=== PATIENT | male | born 1990 | race Caucasian/White ===

== ENCOUNTER 2020-09-28 17:22 | Emergency (ER) | payer OTHER, SELFPAY ==
--- NOTE | 2020-09-28 17:30 | ED.EAR ---
HPI - Ear Problem General Chief complaint: Ear Stated complaint: ear pain Source: patient Mode of arrival: ambulatory Limitations: no limitations History of Present Illness HPI Narrative: Zana Kelley is a 29yo male with no PMH who comes to express care with left ear discomfort, states he tried to use Debrox, came here with Q tip in ear canal. Says it has been worse the last day or so- unable to remove and hearing is muffled. Related Data Allergies Allergy/AdvReac Type Severity Reaction Status Date / Time amoxicillin Allergy Severe Hives Verified 09/28/20 17:31 nickel Allergy Unknown RASH Verified 09/28/20 17:31 AMOXICILLIN TRIHYDRATE Allergy Unknown HIVES Uncoded 09/28/20 17:31 POTASSIUM CLAVULANATE Allergy Unknown HIVES Uncoded 09/28/20 17:31 Review of Systems Review of Systems: Narrative: CONSTITUTIONAL: Denies fever, chills, sweats. EYES: Denies visual changes, redness, discharge. ENT: Denies rhinorrhea, congestion, sore throat, otalgia. Decreased hearing in left ear due to wax CARDIOVASCULAR: Denies chest pain, palpitations, edema. RESPIRATORY: Denies dyspnea, wheezing, cough GASTROINTESTINAL: Denies abdominal pain, nausea, vomiting, diarrhea. GENITOURINARY: Denies dysuria, hematuria, abnormal discharge SKIN: Denies rash or itching. NEUROLOGIC: Denies numbness, or focal weakness. PSYCHIATRIC: Denies anxiety or depression. [facility] Past Medical History Medical History No acute medical problems Family History Family History Father Family history of pancreatic cancer Social History Social History Smoking status: Never smoker Alcohol intake: current Comments At time of signature, I agree with nursing past medical, surgical, social and family history. There is no relevant family history pertinent to the presenting complaint. Exam Narrative: Exam Narrative: GENERAL: This is a well-nourished, well-developed patient, in mild distress. HEAD: normocephalic, atraumatic. EYES Sclera clear/white. Vision is grossly intact. EARS: External ears normal, auditory canalr R small amount wax, L larger amount of wax, can't visualize L TM. Hearing grossly intact. NOSE: External nose normal without nasal discharge, nares without redness, no rhinorrhea. THROAT: Mucous membranes moist, NECK: Neck supple, r CARDIOVASCULAR: Regular rate and rhythm without murmurs, gallops, or rubs. RESPIRATORY: Clear to auscultation. Breath sounds equal bilaterally. No wheezes, rales, or rhonchi. GASTROINTESTINAL: Abdomen soft,, SKIN: warm, intact with no suspicious lesions or rash, good texture and turgor. NEURO: awake, alert, and oriented to person, place and time. There were no obvious focal neurologic abnormalities. Steady gait EXTREMITIES: Normal range of motion. BACK: Nontender without deformity Course Course Emergency Course: Came to [facility] with left ear decreased hearing Ear flush to remove wax Continue to use Debrox weekly once a month Vital Signs Vital signs: Vital Signs Temperature 98.0 F 09/28/20 17:37 Pulse Rate 74 09/28/20 17:37 Respiratory Rate 16 09/28/20 17:37 Blood Pressure 127/84 09/28/20 17:37 Pulse Oximetry 100 09/28/20 17:37 Temperature 98.0 F 09/28/20 17:37 Pulse Rate 74 09/28/20 17:37 Respiratory Rate 16 09/28/20 17:37 Blood Pressure 127/84 09/28/20 17:37 Pulse Oximetry 100 09/28/20 17:37 Procedures Ear Wax Removal Left Ear: Ear Wax Removal Date: 09/28/20 Ear Wax Removal Time: 17:40 Results: Re-examined: cerumen removed completely TM Examination: TM(s) intact, normal appearance Ear Canal Exam: atraumatic Patient Tolerated Procedure: well Complications: no problems Technique: ear canal irrigated Medical Decision Making Differential Diagnosi
[2020-09-28 17:37] VITALS: BP 127/84; PULSE 74; RESP 16; TEMP 36.7; O2SAT 100
== END 2020-09-28 17:57 | disposition home or self-care (01) ==
PROVIDERS: Emergency Provider Nurse Practitioner
DX: H61.22 Impacted cerumen, left ear (principal)
CPT/HCPCS: 69209; 99213; G0463

== ENCOUNTER 2022-12-02 15:29 | Emergency (ER) | payer OTHER, SELFPAY ==
--- NOTE | 2022-12-02 15:36 | ED.SKABFB ---
HPI - Skin/Abscess/Foreign Bdy General Chief complaint: Skin/Abscess/Foreign Body Stated complaint: RASH Source: patient and RN notes reviewed History of Present Illness HPI narrative: 31 yo M present to urgent care with complaints of a rash to his left forearm. Pt states he first noticed it yesterday after working in his yard. Pt states the rash is now on his testicles and his left upper eyelid. Pt reports mild itching. Denies any fevers, chills, chest pain, SOB, or vomiting. Related Data Allergies Allergy/AdvReac Type Severity Reaction Status Date / Time amoxicillin Allergy Severe Hives Verified 09/28/20 17:31 nickel Allergy Unknown RASH Verified 09/28/20 17:31 AMOXICILLIN TRIHYDRATE Allergy Unknown HIVES Uncoded 09/28/20 17:31 POTASSIUM CLAVULANATE Allergy Unknown HIVES Uncoded 09/28/20 17:31 Review of Systems Review of Systems: CONSTITUTIONAL: Denies fever, chills, or sweats. EYES: Denies visual changes, redness, or discharge. ENT: Denies otalgia and sore throat CARDIOVASCULAR: Denies chest pain, palpitations, or edema. RESPIRATORY: Denies cough or dyspnea. GASTROINTESTINAL: Denies abdominal pain, nausea, vomiting, or diarrhea. GENITOURINARY: Denies dysuria or hematuria. SKIN:rash MUSCULOSKELETAL: Denies back pain, joint pain, or myalgia. NEUROLOGIC: Denies headache, numbness, or weakness. Pertinent positives per HPI. PMFSH Past Medical History Medical History No acute medical problems Family History Family History Father Family history of pancreatic cancer Social History Social History Smoking status: Never smoker Alcohol intake: current Comments At the time of my signature, I reviewed and agree with the nursing past medical, surgical, social, and family history. There is no relevant family history pertinent to the patient complaint. Exam Narrative: GENERAL: This is a well-nourished, well-developed patient, in no apparent distress. HEAD: normocephalic, atraumatic. EYES: Sclera clear/white. Vision is grossly intact. EARS: External ears normal, auditory canals clear and without drainage. Hearing grossly intact. NOSE: External nose normal with no obvious nasal discharge, nares without redness, no rhinorrhea. THROAT: Mucous membranes moist, posterior pharynx clear. NECK: Neck supple, non-tender without lymphadenopathy, masses or thyromegaly. CARDIOVASCULAR: Regular rate RESPIRATORY: No respiratory distress SKIN:erythremic rash to left FA and mild to left upper eyelid. NEURO: awake, alert, and oriented to person, place and time. There were no obvious focal neurologic abnormalities. EXTREMITIES: No clubbing, cyanosis, or edema. No joint tenderness, effusion, or edema noted. Course Course Level of Care: Express [facility] Visit Vital Signs Vital signs: reviewed MDM - Skin/Abscess/Foreign Bdy MDM Narrative Medical decision making narrative: Prevention is always better than treatment. Learn to identify poison oswaldo, oak, and sumac and avoid it. Wear long sleeves, long pants, shoes, and socks. If you touched the plant, try to keep your hands away from your eyes, mouth, and face. Wash the skin thoroughly with soap and cool water as soon as possible. Scrub under the fingernails with a brush to prevent spreading of the resin to other parts of the body by touching or scratching. Remember to wash any clothing with soap and hot water as the resin can persist for many months and cause further dermatitis. Use calamine lotion on the affect area. IF symptoms get worse to follow up with your primary care provider or seek ER visit if you developing difficulty breathing, weakness, dizziness. Differential Diagnosis Differential diagnosis: Likely viral exanthem, cellulitis and contact dermatitis Critical Care Time Critical Care Time Critical
[2022-12-02 15:39] VITALS: BP 137/91; PULSE 75; RESP 16; TEMP 36.8; O2SAT 98
== END 2022-12-02 15:51 | disposition home or self-care (01) ==
PROVIDERS: Emergency Provider Nurse Practitioner Family
DX: L25.9 Unspecified contact dermatitis, unspecified cause (principal)
CPT/HCPCS: 99213; G0463